=== PATIENT | female | born 1935 | race Two or more races ===

== ENCOUNTER → 2018-11-29 | Outpatient (CLI) | payer OTHER ==
[~2018-11-29] MED LIST: BENAZEPRIL HCL5 MG PO; CALTRATE 600+D1 EAC1 PO; CENTRUM SILVER1 EAC2 PO; FISH OIL-VIT D1 EACH PO; GABAPENTIN400 MG PO; IPRAT-ALBUT 0.5-3 ML IH; MELATONIN5 M1 PO; PRAVASTATIN SOD20 MG PO; PROTONIX40 M1 PO; REFRESH OPTIVE10 ML OTIC; TESSALON PERLE100 M1 PO; TOPROL XL25 M1 PO; [UNRECOGNIZED DRUG - OTHER] PO
== END | disposition home or self-care (01) ==
LOC: TOM 09:45
DX: K44.9 Diaphragmatic hernia without obstruction or gangrene (principal)

== ENCOUNTER 2018-12-04 05:53 | Day surgery (SDC) | payer OTHER ==
[~2018-12-04 05:53] MED LIST changes: -IPRAT-ALBUT 0.5-3 ML IH; -TESSALON PERLE100 M1 PO
[2018-12-05] MEDS ORDERED: IPRAT-ALBUT 0.5-3 ML IH (10:23)
[2018-12-05] MEDS ORDERED: TESSALON PERLE100 M1 PO (10:23)
== END 2018-12-05 13:25 | disposition home or self-care (01) ==
LOC: CIR.AMB 05:53 → O/R 16:34 → CIR.AMB 12-05 13:25 → O/R 12-05 13:25
DX: M75.122 Complete rotator cuff tear or rupture of left shoulder, not specified as traumatic (principal); M25.312 Other instability, left shoulder; M24.112 Other articular cartilage disorders, left shoulder; M19.012 Primary osteoarthritis, left shoulder